=== PATIENT | female | born 1970 | race Caucasian/White ===

== ENCOUNTER 2018-11-01 11:09 | Inpatient (IN) | payer OTHER, BC ==
[~2018-11-01] VITALS: Ht 157.5 cm; Wt 98.2 kg
[2018-11-01] VITALS (26 sets, daily range): BP systolic 119–151; BP diastolic 61–80; PULSE 90–110; RESP 12–21; Ht 157.5 cm; Wt 98.2 kg
--- NOTE | 2018-11-01 12:53 | PREAC ---
Date/Time of Note Date/Time of Note DATE: 11/01/18 TIME: 12:52 Anesthesia Eval and Record Evaluation Time Pre-Procedure Interview DATE: 11/01/18 TIME: 12:52 Age 48 Sex female NPO: 8 hrs Preoperative diagnosis fibroids Planned procedure MIGUE Past Medical History Past Medical History: Includes Pulm: Sleep Apnea, Home CPAP GI: Morbid obesity Surgery & Anesthesia Issues No known issue Meds Anticoagulation: No Beta Carlos Alberto within 24 hr: No Reason Beta Carlos Alberto not given: Pt. not on B-Carlos Alberto No Active Prescriptions or Reported Meds Meds reviewed: Yes Allergies Coded Allergies: No Known Allergy (Unverified , 11/01/18) Allergies Reviewed: Yes Labs/Studies Labs Reviewed: Reviewed by anesthesiologist Blood Bank Test 11/01/18 10:35 Antibody Screen NEGATIVE Blood Type O POSITIVE test: Negative Pre-procedure Exam Last vitals Vital Signs Date Temp Pulse Resp B/P (MAP) Pulse Ox O2 O2 Flow FiO2 Time Delivery Rate 11/01/18 99.4 94 18 133/63 96 Room Air 11:46 (86) Airway: Adequate mouth opening, Adequate thyromental dist Mallampati: Mallampati II Teeth: Normal Lung: Normal Heart: Normal ASA Physical Status ASA physical status: 3 Emergency: None Planned Anesthetic General/MAC: ETT Neuraxial: Spinal, Epidural Nerve block: TAP (bilateral) Planned Pain Management Sub-arachniod narcotics Pre-operative Attestations Prior to commencing anesthesia and surgery, the patient was re-evaluated, there was verification of: *The patient's identity *The results of appropriate recent lab work and preoperative vital signs *The above evaluation not changing prior to induction *Anesthetic plan, risk benefits, alternative and complications discussed with patient/family; questions answered; patient/family understands, accepts and wishes to proceed. GEMMA LOPEZ November 01, 2018 12:53
[2018-11-01] MEDS ORDERED: LEVALBUTEROL (NEB) 0.63 MG/3 ML AMP HHN PRN (13:00)
[2018-11-01] MEDS ORDERED: ALBUTEROL 0.083% (NEB) 2.5 MG/3 ML AMP HHN PRN (13:00)
[2018-11-01] MEDS ORDERED: METOCLOPRAMIDE 10 MG INJ IV PRN (13:00)
[2018-11-01] MEDS ORDERED: DIPHENHYDRAMINE 50 MG INJ IV PRN (13:00)
[2018-11-01] MEDS ORDERED: FENTAnyl 50 MCG/ML VIAL IV PRN ×2 (13:00)
[2018-11-01] MEDS ORDERED: ONDANSETRON 4 MG INJ IV PRN ×2 (13:00→22:30)
[2018-11-01] MEDS ORDERED: MEPERIDINE 25 MG INJ IV PRN (13:00)
[2018-11-01] MEDS ORDERED: HYDROmorphONE 1 MG/5 ML IV SYRINGE IV PRN ×3 (13:00)
--- NOTE | 2018-11-01 13:06 | HPN ---
Date/Time of Note Date/Time of Note DATE: 11/01/18 TIME: 13:06 Interval H&P Admission Note Pt. seen H&P reviewed: No system changes KARL ADAMS MD November 01, 2018 13:06
[2018-11-01] MEDS ORDERED: morphine SULFATE/PF (10 MG/10 ML) INJ ONE (13:14)
[2018-11-01] MEDS ORDERED: MIDAZOLAM 1 MG/ML 2 ML INJ ONE (13:15)
[2018-11-01] MEDS ORDERED: FENTAnyl 50 MCG/ML VIAL ONE ×2 (13:34→15:08)
[2018-11-01] MEDS ORDERED: CEFAZOLIN 1 GM INJ ONE (13:53)
[2018-11-01] MEDS ORDERED: SUCCINYLCHOLINE CHLORIDE 100 MG/5 ML SYG IV ONE (13:53)
[2018-11-01] MEDS ORDERED: ROCURONIUM 50 MG INJ ONE (13:53)
[2018-11-01] MEDS ORDERED: LIDOCAINE 100 MG SYRINGE ONE (13:53)
[2018-11-01] MEDS ORDERED: PROPOFOL 20 ML ONE (13:53)
[2018-11-01] MEDS ORDERED: ROPIVACAINE 0.5 % 30 ML VIAL ONE (14:57)
[2018-11-01] MEDS ORDERED: GLYCOPYRROLATE 0.4 MG INJ ONE (15:00)
[2018-11-01] MEDS ORDERED: NEOSTIGMINE 3 MG/3 ML SYRINGE ONE (15:00)
[2018-11-01] MEDS ORDERED: THROMBIN (BOVINE) 5,000 UNIT VIAL TP ONE (15:26)
[2018-11-01] MEDS ORDERED: SUGAMMADEX SODIUM 200 MG/2 ML VIAL IV ONE (15:34)
[2018-11-01] MEDS ORDERED: SURGIFOAM POWDER 1 GM KIT MM ONE (15:35)
--- NOTE | 2018-11-01 16:37 | OPR ---
Date/Time of Note Date/Time of Note DATE: 11/01/18 TIME: 16:23 Operative Report Procedure Date: November 01, 2018 Preoperative Diagnosis 1. Sympatomatic fibroid uterus 2.Menometrorrhagia 3. Pelvic pressure and pain Postoperative Diagnosis Same Operation/Procedure Performed 1. Supracervical hysterectomy 2. Lysis of adhesion 3 drainage of right ovarian cyst. 4. Bilateral salpingectomy Surgeon see signature line Fish And Wildlife Warden Remy Vargas MD Second Fish And Wildlife Warden: Carina Anesthesia Type: general, spinal Anesthesiologist: GEMMA LOPEZ Estimated Blood Loss: other (400) Transfusion none Specimen Uterus with attached fibroid 2/3 proximal stump of the cervix Bilateral tubes Grafts/Implants none Complications none Pt Condition Post Procedure: stable Disposition: PACU Indications Symptomatic fibroid uerus Menometrorrhagia Procedure Description 48-year-old female with symptomatic fibroid uterus with menometrorrhagia, and pelvic pain, she failed medical management and desires to proceed with definitive surgical management with hysterectomy. After discussing about the risk and benefit of surgery including risk of infection, bleeding, damage to surrounding structures including bowel and bladder and risk of blood transfusion including but not limited to blood borne infection including HIV, hepatitis B and C and transfusion reaction informed consent was obtained Patient verbalized understanding. All questions were answered to patient's best satisfaction. She was consented for total abdominal hysterectomy possible supracervical hysterectomy and bilateral salpingectomy possible bilateral salpingo-oophorectomy and possible blood transfusion and lysis of adhesion She was then received 2 g of Ancef prior to be taken to the OR. She then was transferred to the OR and was placed in the supine position after adequate spinal and general anesthesia. Examination were performed. Uterus was noted to be size of about 26 weeks . After prepped and draped in the dorsal supine position with adequate combined anesthesia a skin incision in the area of prior incision was made in the Pfannenstiel fashion and was carried down to the underlying layer of fascia using scalpel and Bovie. Then the superior aspect of fascial incision was g rasped using Girdler clamp was elevated and was dissected off of the rectus muscle using sharp and Bovie dissection. Inferior aspect of the fascial incision in a similar fashion was grasped and was dissected off of the parameters muscle in a similar fashion. Then the parietal peritoneum was identified and with careful attention to underlying structure it was grasped using 2 Tiera clamps and the with careful attention to the underlying structure (using Metzenbaum scissors. Then the intra-abdominal cavity entered without any complication. There was evidence of large uterus with multiple pedunculated fibroids including subserosal multiple different locations to the size of about 6 -7 cm in the body of the uterus and on the fundus of the uterus. There was adhesion of the bladder to the lower uterine segment. Ovary in the right side noted to have a 3 cm simple cyst. Tube in the right side with evidence of hydrosalpinx. Evidence of prior bilateral tubal ligation was noted. At this point the uterus was exteriorized then hysterectomy started by clamping clicking and coagulating of the LigaSure device. First round ligament was clamped cut and ligated and divided in the right side and then subsequent in the left side. Bladder flap was created with careful attention to the bladder using Bovie and sharp dissection Then the utero-ovarian ligaments in the right side after making a small window in the broad ligaments was accomplished and coagulated using LigaSure device. And he was then dissected the ovary and tube in the right side from the body of the uterus. The procedure proceeded in a similar fashion the left side. Then the uterine artery at the level of internal cervical office was skeletonized first on the right side and then it was clamped using Dwight clamp and then cut and was suture ligated using Dwight suture using 1-0 Vicryl. Procedure proceeded in a similar fashion the left side. Then serially the cardinal ligament was in the right and then in the left side was clamped using straight Dwight clamp and was cut and was dissected off of them uterus and it was then suture ligated using 1-0 Vicryl. Procedure continued in a similar fash ion the left side. The cervical stump noted to be longer than 5 cm. Due to adhesion of the bladder to the lower uterine segment two thirds proximal part of the cervix was dissected and then the stump of the remainder of the cervix was suture-ligated serially using [id number] sutures using 1-0 Vicryl and hemostasis of the cervical stump was obtained. Then bilateral salpingectomy performed using LigaSure device. The entire remainder of the tubes in the right and left side using LigaSure from the mesos alpinx area was serially clamped click and coagulated and was dissected and separately was sent to pathology. Hemostasis of the old surgical site was reassured. The 3 cm right ovarian cyst was drained. Then after irrigation of a shortness about the hemostasis Surgifoam was applied over the resected area in the pelvis. Then the laps And instrument was removed. The pressure present and repaired using 2-0 Vicryl in a continuous fashion using 2-0 Vicryl. Then the rectus muscle using several [id number] sutures reapproximated and the fascia was reapproximated using 1-0 Vicryl in a continuous fashion. Irrigation of suppleness tissue performed using warm normal saline. Hemostasis obtained using Bovie. Subcu anesthesia was reapproximated using 2-0 plain gut in interrupted fashion. Then the skin was reapproximated using in sorb. Patient tolerated procedure well. Instrument count and lap coun correct x2. Patient was then transferred to recovery room in stable condition. Hanks was noted to be draining clear yellow urine. KARL ADAMS MD November 01, 2018 16:37
[2018-11-01] MEDS: OXYCODONE/ACETAMINOPHEN (5/325) TAB PO PRN (18:55)
[2018-11-02] VITALS: BP 122/62; PULSE 89; RESP 20
[2018-11-02 06:30] VITALS: BP 121/59; PULSE 92; RESP 18
[2018-11-02] MEDS: IBUPROFEN 600 MG TAB PO PRN ×2 (06:34→18:08)
[2018-11-02 08:18] VITALS: BP 125/58; PULSE 94; RESP 18
--- NOTE | 2018-11-02 08:33 | PN ---
Date/Time of Note Date/Time of Note DATE: 11/02/18 TIME: 08:33 Assessment/Plan VTE Prophylaxis Risk score (from Ns)>0 risk: 5 SCD applied (from Ns): Yes Pharmacological prophylaxis: other (N/A) Lines/Catheters IV [facility]ter Type (from [facility]): Peripheral IV Central line still needed: No Urinary Cath still in place: Yes Reason Cath still needed: other (indicate) (Not needed) Assessment/Plan Hospital Course Status post open supracervical hysterectomy with bilateral salpingectomy for symptomatically fibroid uterus Postoperative day #1 Anemia, fatigue, dizziness, related to likely prior menometrorrhagia as well as postop status Patient hemodynamically stable I discussed with the patient regarding blood transfusion. Risk and benefit of b lood transfusion including risk of blood borne infection including HIV, hepatitis B and C and transfusion reaction discussed with patient in detail Patient at this point declined blood transfusion. Desires to think about it. Assessment/Plan DC Hanks Ambulation with nursing assistance only Advance diet Encourage incentive spirometer Chest x-ray requested Routine postop care Iron with stool softener after tolerated diet well Result Diagram: 11/02/18 0442 Results 24hrs Laboratory Tests Test 11/02/18 04:42 11/02/18 07:14 White Blood Count 11.0 H Red Blood Count 2.88 L Hemoglobin 7.8 L Hematocrit 24.2 L Mean Corpuscular Volume 84.0 Mean Corpuscular Hemoglobin 27.1 L Mean Corpuscular Hemoglobin Concent 32.2 Red Cell Distribution Width 14.4 Platelet Count 234 Mean Platelet Volume 9.8 Immature Granulocytes % 0.400 Neutrophils % 67.8 Lymphocytes % 22.7 Monocytes % 8.6 Eosinophils % 0.2 Basophils % 0.3 Nucleated Red Blood Cells % 0.0 Immature Granulocytes # 0.040 H Neutrophils # 7.5 Lymphocytes # 2.5 Monocytes # 0.9 Eosinophils # 0.0 Basophils # 0.0 Nucleated Red Blood Cells # 0.0 Lab Scanned Report REFERENCE LAB Subjective 24 Hr Interval Summary Free Text/Dictation Patient is a still in bed. Tolerated clear liquid diet. Has not been out of the bed. Hanks still in and draining clear liquid. Reports fatigue and occasional shortness of breath. Denies any chest pain. Occasional dizziness. Pain well-controlled with p.o. pain medication. Constitutional: no complaints; No improved, No chills, No diaphoresis, No disoriented, No febrile, No poor po, No requiring IVF, No requiring O2, No other Eyes: No no complaints, No pain, No discharge, No redness, No visual change, No other ENT: No no complaints, No bleeding, No pain, No congestion, No discharge, No dysphagia, No sore throat, No other Respiratory: No no complaints, No pain, No cough, No pleuritic pain, No shortness of breath, No sputum, No wheezing, No other Cardiovascular: other (Occasional dizziness.); No no complaints, No chest pain, No edema, No lightheadedness, No orthopenea, No palpitations, No paroxysmal nocturnal dyspnea Gastrointestinal: nausea; No no complaints, No pain, No blood, No constipation, No decreased appetite, No diarrhea, No flatus, No passing stool, No vomiting, No other Genitourinary: bleeding, other (Small amount of bleeding vaginally); No no complaints, No dysuria, No discharge, No flank pain, No hematuria Musculoskeletal: No no complaints, No back pain, No bone/joint pain, No neck pain, No restricted range of motion, No swelling, No other Skin: No no complaints, No bruising, No erythema, No laceration, No pruritis, No rash, No skin lesions, No other Neurologic: No no complaints, No confusion, No dizziness, No focal-weakness, No headache, No syncope, No seizure, No other Endocrine: No no complaints, No polyuria, No polydypsia, No dry skin, No temp intolerance, No other Lymphatic: No no complaints, No adenopathy, No tender nodes, No lymphadema, No other Psychological: No no complaints, No nl mood/affect, No anxiety, No confusion, N o depression, No suicidal, No other Additional Comments Patient reports fatigue and some dizziness. Denies any chest pain. Exam/Review of Systems Exam Vitals Vital Signs Date Temp Pulse Resp B/P (MAP) Pulse Ox O2 O2 Flow FiO2 Time Delivery Rate 11/02/18 98.8 94 18 125/58 96 Nasal 2.0 08:18 (80) Cannula Intake and Output 11/01/18 11/01/18 11/02/18 1515:00 23:00 07:00 IntakeIntake Total 3000 ml 250 ml OutputOutput Total 450 ml 900 ml BalanceBalance 2550 ml -650 ml Constitutional: alert, oriented, well developed Psych: no complaints, nl mood/affect Head: normocephalic, atraumatic Eyes: nl conjunctiva, EOMI, nl lids ENMT: nl external ears & nose, nl lips & teeth Neck: supple, non-tender Cardiovascular: regular rate and rhythm, nl pulses Gastrointestinal: soft, non-tender, tender (Appropriate tenderness in the lower abdominal incision noted) Extremities: other (SCDs are in place.); No normal pulses, No calf tenderness, No cyanosis, No clubbing, No edema, No pitting pedal edema, No palpable cord, No tenderness Results Results 24hrs Laboratory Tests Test 11/02/18 04:42 11/02/18 07:14 White Blood Count 11.0 H Red Blood Count 2.88 L Hemoglobin 7.8 L Hematocrit 24.2 L Mean Corpuscular Volume 84.0 Mean Corpuscular Hemoglobin 27.1 L Mean Corpuscular Hemoglobin Concent 32.2 Red Cell Distribution Width 14.4 Platelet Count 234 Mean Platelet Volume 9.8 Immature Granulocytes % 0.400 Neutrophils % 67.8 Lymphocytes % 22.7 Monocytes % 8.6 Eosinophils % 0.2 Basophils % 0.3 Nucleated Red Blood Cells % 0.0 Immature Granulocytes # 0.040 H Neutrophils # 7.5 Lymphocytes # 2.5 Monocytes # 0.9 Eosinophils # 0.0 Basophils # 0.0 Nucleated Red Blood Cells # 0.0 Lab Scanned Report REFERENCE LAB Medications Medication Current Medications Ibuprofen (Motrin) 600 mg Q8H PRN PO MILD PAIN(1-3)OR ELEVATED TEMP Last administered on 11/02/18 06:34; Admin Dose 600 MG; Start 11/01/18 at 17:00 Oxycodone/ Acetaminophen (Percocet (5/ 325)) 1 tab Q4H PRN PO PAIN LEVEL 6-10 Last administered on 11/01/18 18:55; Admin Dose 1 TAB; Start 11/01/18 at 17:00 Ondansetron HCl (Zofran Inj) 4 mg Q6H PRN IV NAUSEA AND/OR VOMITING Last administered on 11/01/18 23:00; Admin Dose 4 MG; Start 11/01/18 at 22:30 KARL ADAMS MD November 02, 2018 08:33
[2018-11-02] MEDS: OXYCODONE/ACETAMINOPHEN (5/325) TAB PO PRN ×3 (08:46→19:26)
[2018-11-02 14:26] VITALS: BP 126/60; PULSE 92; RESP 18
[2018-11-02 19:57] VITALS: BP 126/60; PULSE 90; RESP 16
[2018-11-03 01:45] VITALS: BP 135/71; PULSE 82; RESP 16
[2018-11-03] MEDS: OXYCODONE/ACETAMINOPHEN (5/325) TAB PO PRN (02:39)
[2018-11-03] MEDS: IBUPROFEN 600 MG TAB PO PRN ×2 (04:02→15:20)
--- NOTE | 2018-11-03 06:50 | QN ---
KARL ADAMS MD November 03, 2018 06:50
--- NOTE | 2018-11-03 07:34 | PD.PPDC ---
HEARING AID ASSEMBLY SUPERVISOR Discharge Instruction Provider Information Physician Information Karl Hill MD Condition [id number] Patient Condition: Evedv5u Good Activity/Restrictions [id number] Activity: [id number] Normal Activity [id number] Restrictions: [id number] No Exercising No Lifting No Driving Minimize Walking Minimize Stair-climbing No Sexual Activity Nothing in the Vagina No [place] No Tampons, douche Follow-up Follow-up with Physician: 2, 6, Week/Weeks Provider Information: Follow up at 2 and 6 weeks post op with the office Return to clinic for [id number] DIGITAL ADVERTISING SPECIALIST Instructions: [id number] Fever greater than 101 Chills Worsening abdominal pain Excessive Vaginal Bleeding More than 2 pads per hour Unable to tolerate diet [id number] Surgical Instructions: Daghi7m Incisional Drainage Incisional Redness KARL ADAMS MD November 03, 2018 07:34
[2018-11-03 07:55] VITALS: BP 129/60; PULSE 86; RESP 18
[2018-11-03] MEDS ORDERED: ASA/ACETAMINOPHEN/CAFF TAB PO PRN (09:00)
[2018-11-03] MEDS ORDERED: DOCUSATE SODIUM 100 MG CAP PO PRN (10:00)
[2018-11-03] MEDS: FERROUS SULFATE (EC) 325 MG TAB PO SCH ×2 (10:39→20:31)
[2018-11-03 15:09] VITALS: BP 132/67; PULSE 97; RESP 18
[2018-11-03 20:04] VITALS: BP 125/59; PULSE 84; RESP 18
[2018-11-04] MEDS: IBUPROFEN 600 MG TAB PO PRN ×3 (00:41→16:19)
[2018-11-04 01:37] VITALS: BP 122/66; PULSE 80; RESP 16
--- NOTE | 2018-11-04 07:25 | PAC ---
Date/Time of Note Date/Time of Note DATE: 11/04/18 TIME: 07:25 Post-Anesthesia Notes Post-Anesthesia Note Last documented vital signs Vital Signs Date Temp Pulse Resp B/P (MAP) Pulse Ox O2 O2 Flow FiO2 Time Delivery Rate 11/04/18 98.0 80 16 122/66 98 Room Air 01:37 (84) 11/03/18 2.0 08:15 Activity: WNL Respiratory function: WNL Cardiovascular function: WNL Mental status: Baseline Pain reasonably controlled: Yes Hydration appropriate: Yes Nausea/Vomiting absent: Yes GEMMA LOPEZ November 04, 2018 07:25
[2018-11-04 07:33] VITALS: BP 114/58; PULSE 85; RESP 18
[2018-11-04] MEDS: FERROUS SULFATE (EC) 325 MG TAB PO SCH ×2 (08:33→20:41)
[2018-11-04 14:40] VITALS: BP 120/65; RESP 18
[2018-11-04] MEDS ORDERED: MAGNESIUM HYDROXIDE 30ML CUP PO ONE (19:30)
[2018-11-04 20:00] VITALS: BP 131/60; PULSE 83; RESP 20
[2018-11-04] MEDS: DOCUSATE SODIUM 100 MG CAP PO SCH (20:41)
--- NOTE | 2018-11-04 21:57 | PN ---
Date/Time of Note Date/Time of Note DATE: 11/04/18 TIME: 21:53 OB Subjective Subjective Subjective POD#3 Patient is doing well. She denies nausea, vomiting, shortness of breath, chest pain, headache. She has been ambulating without difficulty, tolerating regular diet. Pain is well controlled on current medications General: AAO X 3, comfortable, NAD, appropriate mood and affect. ABD: +BS. Soft, non-tender. Uterus 2 cm below umbilicus Incision: Clear, dry, intact. No erythema, drainage or induration. Flank: No CVA tenderness (B/L) LE: No edema. No clubbing, cyanosis, thigh or calf tenderness (B/L). Homans 'sign is negative 48 years old with symptomatic uterine leiomyoma s/p supracervical hysterectomy with bilateral salpingectomy. Postoperative day #3 - AF, VSS - She is doing well, has no complaints - Continue Postop care - Discharge home tomorrow, she states has no ride today - Rx and instruction given - Follow up in 2 and 6 weeks by her primary solar sales rep OB Objective Objective Objective Vital Signs Date Temp Pulse Resp B/P (MAP) Pulse Ox O2 O2 Flow FiO2 Time Delivery Rate 11/04/18 98.2 83 20 131/60 95 20:00 (83) 11/04/18 Room Air 07:33 11/03/18 2.0 08:15 General: AAO X 3, comfortable, NAD, appropriate mood and affect. ABD: +BS. Soft, non-tender. Uterus 2 cm below umbilicus Incision: Clear, dry, intact. No erythema, drainage or induration. Flank: No CVA tenderness (B/L) LE: No edema. No clubbing, cyanosis, thigh or calf tenderness (B/L). Homans 'sign is negative OB Assessment/Plan Other plan: 48 years old with symptomatic uterine leiomyoma s/p supracervical hysterectomy with bilateral salpingectomy. Postoperative day #3 - AF, VSS - She is doing well, has no complaints - Continue Postop care - Discharge home tomorrow, she states has no ride today - Rx and instruction given - Follow up in 2 and 6 weeks by her primary solar sales rep GEETHA [address] November 04, 2018 21:57
--- NOTE | 2018-11-04 22:00 | DS ---
Date/Time of Note Date/Time of Note DATE: 11/04/18 TIME: 21:57 Discharge Summary Admission/Discharge Info Admit Date/Time November 01, 2018 at 11:09 Discharge Date/Time 11/04/2018 Discharge Diagnosis Symptomatic uterine leiomyoma Patient Condition: Stable Procedures Supracervical hysterectomy, bilateral salpingectomy, lysis of adhesion Hx of Present Illness 48 years old with abnormal uterine bleeding and pelvic pain Hospital Course 48 years old with symptomatic uterine leiomyoma s/p supracervical hysterectomy with bilateral salpingectomy. Postoperative day #3. Postop course was unremarkable. She is ambulating and tolerating regular diet. Pain is controlled on current medication. She is voiding without difficulty and had bowel movement. 6- AF, VSS - She is doing well, has no complaints - Continue Postop care - Discharge home tomorrow, she states has no ride today - Rx and instruction given - Follow up in 2 and 6 weeks by her primary senior pensions administrator - Hemoglobin 8, patient has no symptoms. Recommend ferrous sulfate 325 mg 3 times daily with folic acid 1 mg daily - Prescription for Motrin and [place] given. Home Meds No Active Prescriptions or Reported Meds Primary Care Provider Not On Staff Doctor Time spent on discharge: > 30 minutes Pending Labs Laboratory Tests Test 11/04/18 04:29 White Blood Count 9.8 10^3/ul (4.8-10.8) Red Blood Count 3.01 10^6/ul (4.20-5.40) Hemoglobin 8.0 g/dl (12.0-16.0) Hematocrit 25.2 % (37.0-47.0) Mean Corpuscular Volume 83.7 fl (82.0-101.0) Mean Corpuscular Hemoglobin 26.6 pg (29.0-33.0) Mean Corpuscular Hemoglobin Concent 31.7 g/dl (32.0-37.0) Red Cell Distribution Width 14.3 % (11.5-14.5) Platelet Count 291 10^3/UL (140-415) Mean Platelet Volume 9.8 fl (7.4-10.4) Immature Granulocytes % 0.500 % (0.001-0.429) Neutrophils % 62.8 % (39.0-77.0) Lymphocytes % 24.1 % (15.0-51.0) Monocytes % 8.4 % (0.0-11.0) Eosinophils % 3.8 % (0.0-7.0) Basophils % 0.4 % (0.0-2.0) Nucleated Red Blood Cells % 0.0 /100WBC (0.0-0.0) Immature Granulocytes # 0.050 10^3/ul (0.0-0.031) Neutrophils # 6.2 10^3/ul (1.6-7.5) Lymphocytes # 2.4 10^3/ul (0.8-2.9) Monocytes # 0.8 10^3/ul (0.3-0.9) Eosinophils # 0.4 10^3/ul (0.0-0.5) Basophils # 0.0 10^3/ul (0.0-0.1) Nucleated Red Blood Cells # 0.0 10^3/ul (0.0-0.0) GEETHA ST November 04, 2018 22:00
[2018-11-05 02:01] VITALS: BP 125/68; PULSE 84; RESP 19
[2018-11-05] MEDS: IBUPROFEN 600 MG TAB PO PRN (03:42)
[2018-11-05] MEDS: FERROUS SULFATE (EC) 325 MG TAB PO SCH (09:20)
[2018-11-05] MEDS: DOCUSATE SODIUM 100 MG CAP PO SCH (09:20)
== END 2018-11-05 11:12 | disposition home or self-care (01) | DRG 743 ==
LOC: REC 11:09 → MS1 17:28
PROVIDERS: ADMIT Obstetrics & Gynecology Obstetrics; ATTEND Obstetrics & Gynecology Obstetrics
PROC: 0UT70ZZ Resection of Bilateral Fallopian Tubes, Open Approach (ICD-10-PCS; 2018-11-01)
PROC: 0U900ZZ Drainage of Right Ovary, Open Approach (ICD-10-PCS; 2018-11-01)
PROC: 0UT90ZL Resection of Uterus, Supracervical, Open Approach (ICD-10-PCS; principal; 2018-11-01 12:00)
DX: D25.2 Subserosal leiomyoma of uterus (principal); N92.1 Excessive and frequent menstruation with irregular cycle; N83.201 Unspecified ovarian cyst, right side; N70.11 Chronic salpingitis; Z98.51 Tubal ligation status
CPT/HCPCS: 71045; 85025; 86850; 86900; 86901; 87086; 88309; J0690; J1170; J2001; J2250; J2274; J2405; J2710; J2765; J2795; J3010